=== PATIENT | male | born 1990 | race Caucasian/White ===

== ENCOUNTER 2020-11-12 12:28 | Emergency (ER) | payer BC, SELFPAY ==
[2020-11-12 12:39] VITALS: BP 131/81; PULSE 106; RESP 16; TEMP 38.2; O2SAT 98
[2020-11-12 12:45] VITALS: BP 131/81; PULSE 106; RESP 16; TEMP 38.2; O2SAT 98
--- NOTE | 2020-11-12 13:04 | ED.URI ---
HPI - URI/Sore Throat General Chief Complaint: Upper Respiratory Infection Stated Complaint: sore throat fever cough Time Seen by Provider: 11/12/20 13:00 Source: patient Mode of arrival: ambulatory History of Present Illness HPI Narrative: Korey More is a 30 yo male with no PMH who comes to express care fever upper respiratory symptoms, sore throat x 3 days. His temperature is currently 100.7 and is tachycardic at 106 Has not been vaccinated for Covid Related Data Allergies Allergy/AdvReac Type Severity Reaction Status Date / Time No Known Allergies Allergy Verified 11/12/20 12:45 Review of Systems Review of Systems: CONSTITUTIONAL: Has fever, chills, sweats. EYES: Denies visual changes, redness, discharge. ENT: Denies rhinorrhea, congestion, has sore throat, otalgia. CARDIOVASCULAR: Denies chest pain, palpitations, edema. RESPIRATORY: Denies dyspnea, wheezing, cough GASTROINTESTINAL: Denies abdominal pain, nausea, vomiting, diarrhea. GENITOURINARY: Denies dysuria, hematuria, abnormal discharge SKIN: Denies rash or itching. NEUROLOGIC: Denies numbness, or focal weakness. PSYCHIATRIC: Denies anxiety or depression. PMFSH Past Medical History Medical History No acute medical problems Family History Family History (Updated 11/12/20 @ 13:14 by Josseline Lemon CNP) Other Diabetes mellitus Hypertension Social History Social History (Updated 11/12/20 @ 13:15 by Josseline Lemon CNP) Smoking status: Current every day smoker Smokeless tobacco user: chewing tobacco Alcohol intake: current Comments At time of signature, I agree with nursing past medical, surgical, social and family history. There is no relevant family history pertinent to the presenting complaint. Exam Narrative: GENERAL: This is a well-nourished, well-developed patient, in mild distress. Mild diaphoresis HEAD: normocephalic, atraumatic. EYES: P Sclera clear/white. Vision is grossly intact. EARS: External ears normal, auditory canals clear a Hearing grossly intact. NOSE: External nose normal without nasal discharge, nares without redness, no rhinorrhea. THROAT: Mucous membranes moist, posterior pharynx erythema with a large area of pus left lower tonsil NECK: Neck supple, mild-tender CARDIOVASCULAR: Tachycardic rate and rhythm without murmurs, gallops, or rubs. RESPIRATORY: Clear to auscultation. Breath sounds equal bilaterally. No wheezes, rales, or rhonchi. GASTROINTESTINAL: Abdomen soft, SKIN: warm, intact with no suspicious lesions or rash, good texture and turgor. NEURO: awake, alert, and oriented to person, place and time. There were no obvious focal neurologic abnormalities. Steady gait EXTREMITIES: Normal range of motion. BACK: Nontender without deformity Course Course Emergency Course: Patient comes in sore throat and fever along with mild diaphoresis x3 days Strep test was negative however upon exam it looks like he has pus on tonsils, deep on the left Started on amoxicillin 875 twice daily x10 days Work excuse for 24 hours Vital Signs Vital signs: Vital Signs Temperature 100.7 F H 11/12/20 12:39 Pulse Rate 106 H 11/12/20 12:39 Respiratory Rate 16 11/12/20 12:39 Blood Pressure 131/81 11/12/20 12:39 Pulse Oximetry 98 11/12/20 12:39 Temperature 100.7 F H 11/12/20 12:45 Pulse Rate 106 H 11/12/20 12:45 Respiratory Rate 16 11/12/20 12:45 Blood Pressure 131/81 11/12/20 12:45 Pulse Oximetry 98 11/12/20 12:45 MDM - URI/Sore Throat Differential Diagnosis Differential diagnosis: Likely upper respiratory infection, otitis media, sinusitis, viral infection, bronchitis, pharyngitis and other Lab Data Labs: Strep Screen Presumptive Negative *(Reference Range: Negative)* Discharge Plan Discharge Clinical Impression: Pharyngitis Qualifiers: Pharyngitis/tonsillitis e
== END 2020-11-12 13:23 | disposition home or self-care (01) ==
PROVIDERS: Emergency Provider Nurse Practitioner
DX: J02.9 Acute pharyngitis, unspecified (principal); R50.81 Fever presenting with conditions classified elsewhere; F17.220 Nicotine dependence, chewing tobacco, uncomplicated
CPT/HCPCS: 87081; 87880; 99203; G0463

== ENCOUNTER 2023-08-05 13:49 | Emergency (ER) | payer BC, SELFPAY ==
[2023-08-05 14:05] VITALS: BP 140/83; PULSE 84; RESP 18; TEMP 36.6; O2SAT 100
--- NOTE | 2023-08-05 14:42 | ED.URI ---
HPI - URI/Sore Throat General Chief Complaint: Upper Respiratory Infection Stated Complaint: eyes/throat/ears Time Seen by Provider: 08/05/23 14:20 Source: patient, RN notes reviewed and old records reviewed Mode of arrival: ambulatory Limitations: no limitations History of Present Illness HPI Narrative: 33 year old male presents to [facility] care with complaints of 2 week history of cough, sinus congestion and drainage sore throat and ear pain. Patient reports that he was seen at hospital and had strep test done which was negative and received steroid and Lidocaine for throat and he has taken Tylenol and Ibuprofen. Patient continues to have cough, sinus drainage sore throat and ear pain, states hurts to swallow. Patient reports that for the past 2 days he has had redness, itching, drainage from his right eye, normally wears contact has taken it out and threw away.Patient reports that he quit tobacco use 1 month ago. MD elicited complaint: cough, sore throat, rhinorrhea, nasal congestion and other (redness, itchy and drainage right eye) Onset (ago): week(s) (throat sinus and cough for 2 weeks, eye 2 days) Consistency: constant Pain scale (0-10): 2 Able to tolerate fluids by mouth: Yes Treatments prior to arrival: acetaminophen, ibuprofen and other (took steroids, lidocaine for throat, and allergy med) Related Data Allergies Allergy/AdvReac Type Severity Reaction Status Date / Time No Known Allergies Allergy Verified 08/05/23 14:06 Review of Systems Review of Systems: CONSTITUTIONAL: Denies malaise, chills, sweats, or fever. EYES: Denies visual changes,positive for redness, and discharge right eye. ENT: Reports rhinorrhea, congestion, sinus pain, otalgia and sore throat. CARDIOVASCULAR: Denies chest pain, palpitations, or edema. RESPIRATORY: Reports dry cough.? Denies dyspnea. GASTROINTESTINAL: Denies abdominal pain, nausea, vomiting, diarrhea SKIN: Denies rash or itching. MUSCULOSKELETAL: Denies myalgia. NEUROLOGIC: frontal headache. All systems reviewed & are unremarkable except as noted in HPI and below PMFSH Past Medical History Medical History No acute medical problems Family History Family History Other Diabetes mellitus Hypertension Social History Social History Smoking status: Former smoker Smokeless tobacco user: chewing tobacco Additional smoking assessment comments: quit one month ago Alcohol intake: current Substance use type: does not use Living arrangements: with family Gender identity (if verbalized by the patient): Male Comments At time of signature, agree with nursing past medical, surgical, social and family history. There is no relevant family history pertinent to the presenting complaint Exam Narrative: GENERAL: Well-appearing, well-nourished, and in no acute distress. HEAD: Normocephalic EYES: PERRLA, conjunctivae red with mucoid drainage right eye ENT: Nares clear, turbinates edematous and erythematous, clear to ight yellow discharge. Mucous membranes moist. TM pearly licona with dull light reflex bilaterally; no tragal tenderness. Oropharynx erythematous without lesions. Tonsils not enlarged and without exudate, no drooling, no hoarseness, no trismus, uvula midline.post nasal discharge NECK: Supple. No lymphadenopathy CHEST: Clear to auscultation, breath sounds equal. No wheezing, rhonchi, rales, or stridor. No respiratory distress, speaks in full sentences.dry cough SAO2 100% on room air HEART: Regular rate and rhythm. No murmur heard. SKIN: Warm, dry, no rash. NEURO: Alert and oriented x3. PSYCH: Normal mood and affect Course Course Emergency Course: Patient is aware of diagnosis, understands and agrees to treatment plan.? Anticipatory guidance given.? Patient agrees to fol
== END 2023-08-05 15:29 | disposition home or self-care (01) ==
PROVIDERS: Emergency Provider Registered Nurse
DX: H10.31 Unspecified acute conjunctivitis, right eye (principal); J01.40 Acute pansinusitis, unspecified
CPT/HCPCS: 99213; G0463